=== PATIENT | male | born 1950 ===

== ENCOUNTER 2023-03-18 13:13 | Outpatient (CLI) | payer MEDICARE ==
[~2023-03-18 13:13] MED LIST: Magnevist 469MG/ML 20 ML VIAL ONE
== END 2023-03-18 13:14 | disposition home or self-care (01) ==
LOC: CSHMRI 13:13
PROVIDERS: ATTEND Radiology Radiation Oncology
DX: C61 Malignant neoplasm of prostate (principal); R93.89 Abnormal findings on diagnostic imaging of other specified body structures
CPT/HCPCS: 72197; 82565